=== PATIENT | female | born 1950 | race Caucasian/White ===

== ENCOUNTER 2021-07-04 08:44 | Emergency (ER) | payer MEDICARE ==
[~2021-07-04] VITALS: Ht 162.6 cm; Wt 99.8 kg
[~2021-07-04 08:44] MED LIST: AMLODIPINE-BEN1 EAC3; CIPRO250 MG PO; HYDROCHLOROTH12.5 MG; LEVOTHYROXIN0.125 M1; PYRIDIUM200 MG PO; SIMVASTATIN40 MG
[2021-07-04] MEDS ORDERED: CALCIUM500 MG PO (09:07)
[2021-07-04] MEDS ORDERED: ROSUVASTATIN CA20 MG PO (09:08)
[2021-07-04 11:31] VITALS: BP 165/95
== END 2021-07-04 11:28 | disposition home or self-care (01) ==
LOC: M.ERS 08:44
DX: S93.401A Sprain of unspecified ligament of right ankle, initial encounter (principal); M23.91 Unspecified internal derangement of right knee; Z79.899 Other long term (current) drug therapy; Z88.8 Allergy status to other drugs, medicaments and biological substances; W01.0XXA Fall on same level from slipping, tripping and stumbling without subsequent striking against object, initial encounter; Y93.89 Activity, other specified; Y92.89 Other specified places as the place of occurrence of the external cause; Y99.8 Other external cause status